=== PATIENT | male | born 1935 | race Caucasian/White ===

== ENCOUNTER → 2017-07-31 | Outpatient (CLI) | payer OTHER, BC ==
[~2017-07-31] MED LIST: CRESTOR20 MG PO; NORCO 5-325 TA1 EACH PO
== END ==
LOC: RAD 08:09
DX: R91.8 Other nonspecific abnormal finding of lung field (principal)

== ENCOUNTER → 2019-06-16 | Outpatient (CLI) | payer OTHER, BC ==
--- NOTE | 2019-06-17 14:07 | PATH ---
[facility] [address] [place] [address] PATHOLOGY RPT PROCEDURE Name: HERMELINDO RAGSDALE JR Room #: [facility] Marie.#: [id number] Admission: 06/16/19 Date of : 39 Discharge: Report #: [id number] Path Case #: [id number] [facility] Accession Number: [id number] . 01 Material submitted: . sigmoid colon - POLYP AT SIGMOID COLON . 01 Clinical history: . Pre-OP DX: Hx of polyps Post-OP DX: Colon polyps, diverticulosis, hemorrhoids . 02 Diagnosis: Colonic mucosa "polyp at sigmoid colon": - Tubulovillous adenoma. - There is no evidence of high-grade dysplasia or malignancy. (SHA:pit 06/17/2019) QTP 06/17/2019 1313 Local . 02 Electronically signed: . Silver Holden MD, Pathologist NPI- [id number] . 01 Gross description: . Received in formalin labeled "Black, Hermelindo, polyp at sigmoid colon," is a 1.4 x 1.2 x 0.9 cm polypoid piece of friedman soft tissue. The margin is inked and the tissue is sectioned perpendicular to the margin and submitted entirely in cassette A1. (TSD; 06/16/2019) TOB/TOB 06/16/2019 2255 Local . 02 Pathologist provided ICD-10: D12.5 . 02 CPT . 560278 Specimen Comment: A courtesy copy of this report has been sent to [phone], [phone] Specimen Comment: [phone] Specimen Comment: Report sent to / DR WAGNER Performed at: 01 [facility] [address] [id number] MD Kiran Barrios MD Phone: [phone] Performed at: 02 [facility] [address] [id number] MD Gilson Daniel MD Phone: [phone]
--- NOTE | 2019-06-27 10:13 | P ---
[facility] [place] [address] PROCEDURE REPORT Name: JASON RAGSDALE JR Room #: REG [facility]#: [id number] Admission: 06/16/19 Attend Phys: Emile Najera MD Discharge: Date of : 39 Report #: [id number] THIS REPORT FOR: //name// CC: Emile Garcia MD DATE OF SERVICE: 06/16/2019 OUTPATIENT COLONOSCOPY REPORT. BRIEF HISTORY: The patient is an 84-year-old male with a history of 5 adenomas 4-1/2 years ago, for high risk screening colonoscopy. PREOPERATIVE DIAGNOSIS: High risk screening colonoscopy. POSTOPERATIVE DIAGNOSES: 1. A 15-mm pedunculated polyp cupped at distal sigmoid at 20 cm. 2. Moderate sigmoid diverticulosis coli. 3. Internal hemorrhoids. MEDICATIONS: Deep sedation with propofol per anesthesia. SPECIMEN: Sigmoid polyp. ESTIMATED BLOOD LOSS: None. PROCEDURE: Colonoscopy to cecum and terminal ileum with snare polypectomy. FINDINGS: Prior to propofol sedation, procedure of colonoscopy was discussed with the patient as well as potential risks and its complications. He indicates he understands and desires to proceed. DESCRIPTION OF PROCEDURE: With the patient in left lateral decubitus position, digital examination was completed, which revealed no abnormalities. Subsequently, the Olympus video colonoscope was introduced in the rectum, advanced under direct vision to the cecum. Done with minimal difficulty. Cecum was identified by the ileocecal valve and the appendiceal orifice. I was able to visualize the distal segment of terminal ileum, which was inspected and noted to be unremarkable. At that point, the scope was slowly withdrawn and careful circumferential views were obtained including retroflexing the scope. The mucosa was within normal limits, normal vascular pattern, normal light reflex. The prep was excellent. As we withdrew the scope, no abnormalities were noted until the left colon was reached. In the sigmoid colon, he was noted to have moderately severe diverticular disease without endoscopic evidence of diverticulitis. In the distal sigmoid at about 20 cm, there was a [address] [address] PROCEDURE REPORT Name: JASON RAGSDALE JR Room #: [facility]#: [id number] Admission: 06/16/19 Attend Phys: Emile Najera MD Discharge: Date of : 39 Report #: [id number] on a moderate stalk, removed by hot snare polypectomy. There was no bleeding. Due to the size of the stalk, a single Hemoclip was placed on the polyp stalk with good results. Scope was further withdrawal, no additional abnormalities were seen. Upon retroflexion, internal hemorrhoids were seen. Scope was withdrawn. The patient tolerated the procedure well. CONDITION OF THE PATIENT UPON DISCHARGE: Following procedure, the patient drowsy, aroused, conversant and will be discharged home when fully ambulatory. INSTRUCTIONS TO THE PATIENT AND FAMILY AT THE TIME OF DISCHARGE: The patient had a fairly large polyp as described. We will follow up on the path. However, in view of his history of multiple adenomas in the past and finding of a relatively large polyp today, we will have him return in 3 years. In 3 years, he will be 87. If his health status is good at that time and longevity is in his favor, a colonoscopy in 5 years hence would be reasonable. He will otherwise return to the care of Dr. Eulalio Garcia. <ELECTRONICALLY SIGNED> By: Emile Najera MD 06/27/19 1013 1152 2124 Emile Najera MD /nt
== END | disposition home or self-care (01) ==
LOC: GI 09:45
DX: Z12.11 Encounter for screening for malignant neoplasm of colon (principal); Z86.010 Personal history of colon polyps; D12.5 Benign neoplasm of sigmoid colon; K57.30 Diverticulosis of large intestine without perforation or abscess without bleeding; K64.8 Other hemorrhoids; Z98.890 Other specified postprocedural states; Z79.899 Other long term (current) drug therapy
CPT/HCPCS: 62110; 62900